=== PATIENT | male | born 1980 | race Caucasian/White ===

== ENCOUNTER 2017-08-20 08:30 | Observation (INO) | payer OTHER ==
[2017-08-20] MEDS ORDERED: ASPIRIN 81 MG CHEWABLE TABLET ONE (09:16)
[2017-08-20] MEDS ORDERED: FAMOTIDINE 20 MG/2 ML VIAL IV ONE (09:16)
--- NOTE | 2017-08-20 09:23 | RAD REPORT ---
EXAM DESCRIPTION: RAD - Chest Single View - 08/20/2017 9:16 am CLINICAL HISTORY: Left-sided chest pain COMPARISON: None. TECHNIQUE: AP portable chest image was obtained 0915 hours . FINDINGS: No peripheral mass or consolidation. Lung markings are not outside of normal range. Slight fullness of the left hilum is probably summation of normal structures. Mass or pathologic adenopathy is unlikely. Trachea is midline. Heart and vasculature are normal. No measurable pleural effusion an d no pneumothorax. No gross bony abnormality seen. No acute aortic findings suspected. IMPRESSION: No acute cardiopulmonary process. Fullness of the left hilum is likely summation of normal lung and vascular structures. Left hilum mas s or pathologic lymphadenopathy unlikely.
--- NOTE | 2017-08-20 09:48 | EKG ---
Test Date: 2017-08-20 Test Time: 08:46:26 Marketing Development Manager: HILARY MEASUREMENT RESULTS: Intervals: Rate: 82 DC: 160 QRSD: 88 QT: 404 QTc: 472 [place]: P: 39 DC: 160 QRS: -3 T: 31 INTERPRETIVE STATEMENTS: Normal sinus rhythm Normal ECG No previous ECG available for comparison Electronically Signed On 08-20-17 09:47:25 CDT by Sharath Rosario
[2017-08-20 09:53] LABS: Absolute Lymphocytes (CBC) 2.5 K/uL (0.7-4.9); Absolute Monocytes 0.4 K/uL (0.1-1.3); Absolute Neutrophil 2.6 K/uL (1.8-8.0); Basophils % 0.6 % (0-1.3); Hematocrit 38.5 % (39.6-49.0); Lymphocytes % 44.4 % (15.3-44.8); MCH 29.7 pg (27.0-35.0); MCV 89.5 fL (80-100); MPV 9.6 fL (7.6-11.3); Monocytes % 7.2 % (3.3-12.3)
[2017-08-20 09:57] LABS: Protime INR 0.9
--- NOTE | 2017-08-20 10:02 | EDPHYS ---
Physician Documentation [facility] Name: Milan Gonzales Age: 36 yrs Sex: Male : 1980 Arrival Date: 08/20/2017 Time: 08:33 Bed 5 Private MD: Alexi Melendez S ED Physician Brendon Morales HPI: 08/20 09:04 This 36 yrs old Male presents to ER via Ambulatory with complaints of Chest ryan Pain. 09:04 This 36 yrs old Male presents to ER via Ambulatory with complaints of Chest ryan Pain. 09:04 The patient or guardian reports chest pain that is located primarily in the substernal ryan area. The pain radiates to Associated signs and symptoms: The patient has no apparent associated signs or symptoms. The chest pain is described as a pressure, sharp. Duration: The patient or guardian reports multiple episodes, with no pattern. Modifying factors: The symptoms are alleviated by remaining still, the symptoms are aggravated by deep breath, exertion. Severity of pain: At its worst the pain was moderate in the emergency department the pain has improved moderately. Historical: - Allergies: 08:46 No Known Allergies; ph - Home Meds: 08:46 Lisinopril Oral [Active]; ph - PMHx: 08:46 Hypertension; ph - PSHx: 08:46 Appendectomy; R hand; ph - Immunization history:: Adult Immunizations unknown. - Social history:: Smoking status: Patient uses tobacco products, smokes one-half pack cigarettes per day. - Ebola Screening: : No symptoms or risks identified at this time. - Family history:: not pertinent. ROS: 09:04 Constitutional: Negative for fever, chills, and weight loss, Eyes: Negative for injury, ryan pain, redness, and discharge, ENT: Negative for injury, pain, and discharge, Neck: Negative for injury, pain, and swelling, Abdomen/GI: Negative for abdominal pain, nausea, vomiting, diarrhea, and constipation, Back: Negative for injury and pain, : Negative for injury, bleeding, discharge, and swelling, MS/Extremity: Negative for injury and deformity, Skin: Negative for injury, rash, and discoloration, Neuro: Negative for headache, weakness, numbness, tingling, and seizure, Psych: Negative for depression, anxiety, suicide ideation, homicidal ideation, and hallucinations, Allergy/Immunology: Negative for hives, rash, and allergies, Endocrine: Negative for neck swelling, polydipsia, polyuria, polyphagia, and marked weight changes, Hematologic/Lymphatic: Negative for swollen nodes, abnormal bleeding, and unusual bruising. 09:04 Cardiovascular: Positive for chest pain. 09:04 Respiratory: Positive for shortness of breath. Exam: 09:04 Constitutional: This is a well developed, well nourished patient who is awake, alert, ryan and in no acute distress. Head/Face: Normocephalic, atraumatic. Eyes: Pupils equal round and reactive to light, extra-ocular motions intact. Lids and lashes normal. Conjunctiva and sclera are non-icteric and not injected. Cornea within normal limits. Periorbital areas with no swelling, redness, or edema. ENT: Nares patent. No nasal discharge, no septal abnormalities noted. Tympanic membranes are normal and external auditory canals are clear. Oropharynx with no redness, swelling, or masses, exudates, or evidence of obstruction, uvula midline. Mucous membranes moist. Neck: Trachea midline, no thyromegaly or masses palpated, and no cervical lymphadenopathy. Supple, full range of motion without nuchal rigidity, or vertebral point tenderness. No Meningismus. Chest/axilla: Normal chest wall appearance and motion. Nontender with no deformity. No lesions are appreciated. Cardiovascular: Regular rate and rhythm with a normal S1 and S2. No gallops, murmurs, or rubs. Normal PMI, no JVD. No pulse deficits. Respiratory: Lungs have equal breath sounds bilaterally, clear to auscultation and percussion. No rales, rhonchi or wheezes noted. No increased work of breathing, no retractions or nasal flaring. Abdomen/GI: Soft, non-tender, with normal bowel sounds. No distension or tympany. No guarding or rebound. No evidence of tenderness throughout. Back: No spinal tenderness. No costovertebral tenderness. Full range of motion. Male : Normal genitalia with no discharge or lesions. Skin: Warm, dry with normal turgor. Normal color with no rashes, no lesions, and no evidence of cellulitis. MS/ Extremity: Pulses equal, no cyanosis. Neurovascular intact. Full, normal range of motion. Neuro: Awake and alert, GCS 15, oriented to person, place, time, and situation. Cranial nerves II-XII grossly intact. Motor strength 5/5 in all extremities. Sensory grossly intact. Cerebellar exam normal. Normal gait. Psych: Awake, alert, with orientation to person, place and time. Behavior, mood, and affect are within normal limits. 09:04 Musculoskeletal/extremity: DVT Exam: No signs of deep vein thrombosis. no pain, no swelling, no tenderness, negative Homans' sign noted on exam, no appreciated bluish discoloration, no erythema, no increased warmth. Vital Signs: 08:45 BP 120 / 82; Pulse 89; Resp 14; Temp 97.9(TE); Pulse Ox 100% on R/A; Weight 92.99 kg; ph Height 5 ft. 8 in. (172.72 cm); Pain 4/10; 09:32 BP 110 / 72 LA Sitting; Pulse 66; ph 09:32 BP 104 / 65 RA Sitting; Pulse 65; ph 09:32 Resp 16; Temp 98.2; Pulse Ox 99% on R/A; ph 09:46 BP 105 / 67; Pulse 54; Resp 16; Pulse Ox 97% on R/A; jb1 11:44 BP 115 / 71; Pulse 54; Resp 18; Temp 97.8; Pulse Ox 98% on R/A; ph 08:45 Body Mass Index 31.17 (92.99 kg, 172.72 cm) ph MDM: 08:40 Patient medically screened. [facility] 09:09 Data reviewed: vital signs, nurses notes, lab test result(s), EKG, radiologic studies, [facility] CT scan, plain films. 08/20 09:03 Order name: Basic Metabolic Panel [facility] 08/20 09:03 Order name: BNP; Complete Time: 10:01 [facility] 08/20 09:03 Order name: CBC with Diff; Complete Time: 09:58 [facility] 08/20 09:03 Order name: Ckmb [facility] 08/20 09:03 Order name: CPK [facility] 08/20 09:03 Order name: LFT's [facility] 08/20 09:03 Order name: Magnesium [facility] 08/20 09:03 Order name: PT-INR; Complete Time: 09:58 [facility] 08/20 09:03 Order name: Ptt, Activated; Complete Time: 09:58 [facility] 08/20 09:03 Order name: Troponin (emerg Dept Use Only); Complete Time: 09:58 [facility] 08/20 09:03 Order name: XRAY Chest (1 view); Complete Time: 09:58 08/20 09:03 Order name: Lipase 08/20 09:03 Order name: UDS 08/20 09:03 Order name: TSH 08/20 09:03 Order name: EKG; Complete Time: 09:04 [facility] 08/20 09:03 Order name: Cardiac monitoring; Complete Time: 09:06 [facility] 08/20 09:03 Order name: EKG - Nurse/Tech; Complete Time: 09:32 [facility] 08/20 09:03 Order name: IV Saline Lock; Complete Time: 09:07 [facility] 08/20 09:03 Order name: Labs collected and sent; Complete Time: 09:07 [facility] 08/20 09:03 Order name: O2 Per Protocol; Complete Time: 09:12 [facility] 08/20 09:03 Order name: O2 Sat Monitoring; Complete Time: 09:12 [facility] 08/20 09:03 Order name: CT Aorta for Dissection [facility] 08/20 09:03 Order name: Bilateral blood pressure; Complete Time: 09:31 [facility] 08/20 10:07 Order name: CONS Physician Consult EDMS 08/20 10:09 Order name: Echo with Doppler EDMS 08/20 11:57 Order name: CT EDMS Administered Medications: 09:31 Drug: Aspirin Chewable Tablet 324 mg Route: PO; ph 10:00 Follow up: Response: No adverse reaction ph 09:31 Drug: Pepcid 20 mg Route: IVP; Site: right antecubital; ph 10:00 Follow up: Response: No adverse reaction ph 10:20 Drug: Lovenox 1 mg/kg Route: Sub-Q; Site: abdomen; hb 11:11 Follow up: Response: No adverse reaction ph Disposition: 08/20/17 10:01 Hospitalization ordered by Kumar Carmen for Observation. Preliminary diagnosis are Chest pain, unspecified, Dyspnea, Nausea. - Bed requested for Telemetry/MedSurg (observation). - Status is Observation. ph - Condition is Fair. - Problem is new. - Symptoms have improved. UTI on Admission? No Signatures: Dispatcher [employer] EDMS Carline Perez Corey, MD MD cha Hall, Patricia, RN RN Sarah Buenrostro RN RN hb Corrections: (The following items were deleted from the chart) 11:41 10:01 Hospitalization Ordered by Kumar Carmen DO for Observation. Preliminary bd diagnosis is Chest pain, unspecified; Dyspnea; Nausea. Bed requested for Telemetry/MedSurg (observation). Status is Observation. Condition is Fair. Problem is new. Symptoms have improved. UTI on Admission? No. ryan 13:52 11:41 08/20/2017 10:01 Hospitalization Ordered by Kumar Carmen DO for Observation. ph Preliminary diagnosis is Chest pain, unspecified; Dyspnea; Nausea. Bed requested for Telemetry/MedSurg (observation). Status is Observation. Condition is Fair. Problem is new. Symptoms have improved. UTI on Admission? No. bd
--- NOTE | 2017-08-20 10:02 | ER ---
Nurse's Notes [facility] Name: Milan Gonzales Age: 36 yrs Sex: Male : 1980 Arrival Date: 08/20/2017 Time: 08:33 Bed 5 Private MD: Alexi Melendez S Diagnosis: Chest pain, unspecified;Dyspnea;Nausea Presentation: 08/20 08:43 Presenting complaint: Patient states: " I've been having chest pain off and on since and it seems worse when get hot or sweaty." Reports L sided chest pain and SOB. Transition of care: patient was not received from another setting of care. Onset of symptoms was August 20, 2017. Risk Assessment: Do you want to hurt yourself or someone else? Patient reports no desire to harm self or others. Initial Sepsis Screen: Does the patient meet any 2 criteria? No. Patient's initial sepsis screen is negative. Does the patient have a suspected source of infection? No. Patient's initial sepsis screen is negative. Care prior to arrival: None. 08:43 Method Of Arrival: Ambulatory 08:43 Acuity: LIOR 3 ph Historical: - Allergies: 08:46 No Known Allergies; ph - Home Meds: 08:46 Lisinopril Oral [Active]; ph - PMHx: 08:46 Hypertension; ph - PSHx: 08:46 Appendectomy; R hand; ph - Immunization history:: Adult Immunizations unknown. - Social history:: Smoking status: Patient uses tobacco products, smokes one-half pack cigarettes per day. - Ebola Screening: : No symptoms or risks identified at this time. - Family history:: not pertinent. Screenin:47 Abuse screen: Denies threats or abuse. Denies injuries from another. Nutritional ph screening: No deficits noted. Tuberculosis screening: No symptoms or risk factors identified. Fall Risk None identified. Assessment: 09:00 General: Appears in no apparent distress. comfortable, well groomed, Behavior is calm, ph cooperative, appropriate for age, Reports fatigue for 2-3 days, Denies fever, feeling ill. Pain: Complains of pain in anterior aspect of left upper chest and left breast Pain radiates to back and left arm Pain currently is 5 out of 10 on a pain scale. at worst was 8 out of 10 on a pain scale. Quality of pain is described as pressure, sharp, Pain began 2-3 days ago. Neuro: Level of Consciousness is awake, alert, obeys commands, Oriented to person, place, time, situation. Cardiovascular: Reports chest pain, diaphoresis, fatigue, nausea, shortness of breath, Capillary refill < 3 seconds in bilateral fingers Patient's skin is warm and dry. Rhythm is sinus rhythm Chest pain quality is heaviness, sharp, is located in left anterior chest wall radiates to left arm(s) back began . Respiratory: Airway is patent Respiratory effort is even, unlabored. Respiratory: Denies cough. GI: Reports nausea. Derm: Skin is intact, is healthy with good turgor, Skin is pink, warm \\T\\ dry. Musculoskeletal: Circulation, motion, and sensation intact. Range of motion: intact in all extremities. 10:00 Reassessment: Patient appears in no apparent distress at this time. Patient and/or ph family updated on plan of care and expected duration. Pain level reassessed. Patient is alert, oriented x 3, equal unlabored respirations, skin warm/dry/pink. Pt resting quietly, awaiting lab results and CT scan. 11:30 Reassessment: Patient appears in no apparent distress at this time. Patient and/or ph family updated on plan of care and expected duration. Pain level reassessed. Patient is alert, oriented x 3, equal unlabored respirations, skin warm/dry/pink. Pt resting quietly, VSS. 12:51 Reassessment: Patient appears in no apparent distress at this time. Patient and/or ph family updated on plan of care and expected duration. Pain level reassessed. Patient is alert, oriented x 3, equal unlabored respirations, skin warm/dry/pink. Attempted to call report to 2nd floor, receiving nurse unavailable, was told that she had just gotten a direct admit and asked to call back in 30 min. 13:20 Reassessment: Attempted to call report, place on hold x 6min, will attempt again. ph Vital Signs: 08:45 BP 120 / 82; Pulse 89; Resp 14; Temp 97.9(TE); Pulse Ox 100% on R/A; Weight 92.99 kg; ph Height 5 ft. 8 in. (172.72 cm); Pain 4/10; 09:32 BP 110 / 72 LA Sitting; Pulse 66; ph 09:32 BP 104 / 65 RA Sitting; Pulse 65; ph 09:32 Resp 16; Temp 98.2; Pulse Ox 99% on R/A; ph 09:46 BP 105 / 67; Pulse 54; Resp 16; Pulse Ox 97% on R/A; jb1 11:44 BP 115 / 71; Pulse 54; Resp 18; Temp 97.8; Pulse Ox 98% on R/A; ph 08:45 Body Mass Index 31.17 (92.99 kg, 172.72 cm) ph ED Course: 08:33 Patient arrived in ED. mr 08:34 Alexi Melendez MD is Private Physician. mr 08:40 Brendon Morales MD is Attending Physician. ryan 08:43 Lyudmila Sandoval, YADIEL is Primary Nurse. ph 08:45 Triage completed. ph 08:47 Arm band placed on. ph 08:47 Patient has correct armband on for positive identification. Placed in gown. Bed in low ph position. Call light in reach. Side rails up X 1. threat monitoring analyst on. Pulse ox on. NIBP on. 08:49 EKG done, by communications technologist. reviewed by Brendon Morales MD. at1 09:15 X-ray completed. Portable x-ray completed in exam room. Patient tolerated procedure kp1 well. 09:16 XRAY Chest (1 view) In Process Unspecified. EDMS 09:25 Inserted saline lock: 20 gauge in right antecubital area, using aseptic technique. ph Blood collected. 10:00 Kumar Carmen DO is Hospitalizing Provider. ryan 10:00 Patient maintains SpO2 saturation greater than 95% on room air. ph 10:11 Radiology exam delayed due to lab results not completed at this time. (BUN/Creatinine). cw1 10:42 Radiology exam delayed due to lab results not completed at this time. (BUN/Creatinine). cw1 11:13 Echocardiogram with Doppler done by cardiac cath lab technologist. tc 11:15 Radiology exam delayed due to lab results not completed at this time. (BUN/Creatinine). cw1 11:37 X-ray completed. Portable x-ray completed in exam room. Patient tolerated procedure sw well. 11:40 CT completed. Patient tolerated procedure well. Patient moved to CT via wheelchair. mw3 Patient moved back from CT. 12:52 No provider procedures requiring assistance completed. Patient admitted, IV remains in ph place. Administered Medications: : Drug: Aspirin Chewable Tablet 324 mg Route: PO; ph 10:00 Follow up: Response: No adverse reaction ph 09:31 Drug: Pepcid 20 mg Route: IVP; Site: right antecubital; ph 10:00 Follow up: Response: No adverse reaction ph 10:20 Drug: Lovenox 1 mg/kg Route: Sub-Q; Site: abdomen; hb 11:11 Follow up: Response: No adverse reaction ph Outcome: 10:01 Decision to Hospitalize by Provider. [facility] 13:52 Patient left the ED. 13:52 Admitted to Tele accompanied by tech, family with patient, via wheelchair, with chart. 13:52 Condition: stable 13:52 Instructed on the need for admit. Signatures: Dispatcher [employer] EDNabeel Gonzales jb1 Brendon Morales MD MD cha Rivera, Maria mr Buchanan, Crystal cw1 Lupe reed, junior bookkeeper EKG Tat1 Nelly Simmons, junior bookkeeper EKG Ttc Lyudmila Sandoval, YADIEL RN Delicia Unger Heather, YADIEL RN Sussy Ureña kp1 Tammy Thibodeaux mw3
[2017-08-20] MEDS ORDERED: ENOXAPARIN 100 MG/ML SYR SQ ONE (10:16)
[2017-08-20] MEDS ORDERED: PANTOPRAZOLE 40MG TABLET PO ONE (10:33)
[2017-08-20] MEDS ORDERED: ACETAMINOPHEN 500 MG TAB PO PRN (10:33)
[2017-08-20] MEDS ORDERED: ONDANSETRON 4 MG/2 ML VIAL IV PRN (10:33)
[2017-08-20] MEDS ORDERED: NITROGLYCERIN 0.4 MG/TAB SL PRN (10:33)
--- NOTE | 2017-08-20 10:43 | P.HP ---
Certification for Inpatient Patient admitted to: Observation With expected LOS: <2 Midnights Patient will require the following post-hospital care: None Practitioner: I am a practitioner with admitting privileges, knowledge of patient current condition, hospital course, and medical plan of care. Services: Services provided to patient in accordance with Admission requirements found in Title 42 Section 412.3 of the Code of Federal Regulations Patient History Date of Service: 08/20/17 Primary Care Provider: Dr. Melendez Reason for admission: Chest pain History of Present Illness: 36-year-old male presented emergency room with chest pain. Patient reports chest pain over the past several weeks. The pain comes and goes. Chest pain is mainly to the substernal region. He rates the pain about a 3/10. Pain would radiate to the left arm causing some achiness. The pain is sharp at times. It is associated with some shortness of breath, nausea and dizziness. Today pain was severe. He came to the ER for further evaluation. In the ER patient was evaluated. Blood pressure stable. Initial cardiac enzymes unremarkable with a troponin of less than 0.03. BNP 36. CBC unremarkable. Chest x-ray showed no acute changes. Some fullness to the left hilum noted. EKG showed normal sinus rhythm. Due to his medical history and presentation the patient was admitted for observation. When I saw the patient the ER, he is without any significant chest pain. Patient with history of hypertension, GERD, and tobacco abuse. Allergies No Known Allergies Allergy (Unverified 05/25/15 11:50) Home medications list reviewed: Yes Home Medications: Buprenorphine HCl/Naloxone HCl [Suboxone 8 mg-2 mg Tablet] 1 tab PO BID Ibuprofen 1 tab PO TID 05/25/15 Lisinopril 1 tab PO DAILY 05/25/15 Hydrocodone Bit/Acetaminophen [Lapel 7.5-325 Tablet] 1 each PO Q4HP PRN #20 tablet 05/26/15 - Past Medical/Surgical History Diabetic: No -: Hypertension -: Chronic shoulder pain -: GERD -: Spondylosis -: Tobacco abuse -: Hand surgery status post rattlesnake bite -: Appendectomy -: Right wrist cyst removed Psychosocial/ Personal History: Patient is . He has 1 child. He is a broadcast technician - Family History Father -: Heart disease, Diabetes, Cancer (Liver cancer) Notes: liver cancer Mother -: Heart disease Notes: chronic fatigue symdrome, arthritis - Social History Smoking Status: Heavy Tobacco smoker (>10 cigarettes/day) Counseled patient to stop smoking for: less than 10 minutes Smoking therapy provided: Yes Patient receptive to therapy: Yes Alcohol use: No CD- Drugs: No Caffeine use: Yes Place of Residence: Home Review of Systems General: Weakness, Malaise, As per HPI Eyes: Unremarkable ENT: Unremarkable Respiratory: Shortness of Breath, As per HPI Cardiovascular: Chest Pain, Light Headedness, As per HPI Gastrointestinal: Nausea, As per HPI Genitourinary: Unremarkable Musculoskeletal: Back Pain, As per HPI Integumentary: Unremarkable Neurological: Weakness, As per HPI Lymphatics: Unremarkable Physical Examination - Physical Exam General: Alert, In no apparent distress, Oriented x3, Cooperative HEENT: Atraumatic, Normocephalic, PERRLA, Mucous membr. moist/pink Neck: Supple, No Thyromegaly Respiratory: Clear to auscultation bilaterally, Normal air movement Cardiovascular: Normal pulses, Regular rate/rhythm Gastrointestinal: Normal bowel sounds, Soft and benign, Non-distended, No ascites, No tenderness, No masses, No rebound, No guarding Musculoskeletal: No contractures, No erythema, No tenderness, No warmth Integumentary: No tenderness/swelling, No erythema, No warmth, No cyanosis Neurological: Normal speech, Normal strength at 5/5 x4 extr, Normal tone, Normal affect Lymphatics: No axilla or inguinal lymphadenopathy - Studies Laboratory Data (last 24 hrs) 08/20/17 09:25: PT 10.6, INR 0.90, APTT 27.4 08/20/17 09:25: WBC 5.6, Hgb 12.8 L, Hct 38.5 L, Plt Count 196 08/20/17 09:25: B-Natriuretic Peptide 36 Assessment and Plan - Problems (Diagnosis) (1) Chest pain Current Visit: Yes Status: Acute Plan: Patient will be admitted for cardiac evaluation. Will monitor cardiac enzymes, check echocardiogram. Cardiology consulted. Await further recommendations. Will continue with his blood pressure medication. Qualifiers: Chest pain type: unspecified Qualified Code(s): R07.9 - Chest pain, unspecified (2) Dyspnea Current Visit: Yes Status: Acute Plan: Will check echocardiogram. Repeat chest x-ray. Continue as above. Qualifiers: Dyspnea type: shortness of breath Qualified Code(s): R06.02 - Shortness of breath; R06.00 - Dyspnea, unspecified; R06.01 - Orthopnea (3) Hypertension Current Visit: Yes Status: Chronic Plan: Will continue with his medication. Will monitor and adjust appropriately. Qualifiers: Hypertension type: essential hypertension Qualified Code(s): I10 - Essential (primary) hypertension (4) GERD (gastroesophageal reflux disease) Current Visit: Yes Status: Chronic Plan: Continue with PPI. Qualifiers: Esophagitis presence: esophagitis presence not specified Qualified Code(s) : K21.9 - Gastro-esophageal reflux disease without esophagitis (5) Tobacco abuse Current Visit: Yes Status: Chronic Plan: Tobacco cessation education will be provided. Will provide nicotine patch as needed. Discharge Plan: Home Plan to discharge in: 24 Hours - Advance Directives Does patient have a Living Will: No Does patient have a Durable POA for Healthcare: No - Code Status/Comfort Care Code Status Assessed: Yes Time Spent Managing Pts Care (In Minutes): 55
[2017-08-20 11:21] LABS: Bicarbonate 25 mEq/L (21-31); CKMB Creatine Kinase MB 2.9 ng/ml (0.3-4.0); Glucose Level 105 mg/dL (65-120); Lipase 28 U/L (22-51); Sodium Level 138 mEq/L (135-145); Thyroid Stimulating Hormone 1.08 uIU/mL (0.34-5.60)
[2017-08-20 11:27] LABS: ALT/SGPT 24 IU/L (10-60); AST/SGOT 23 IU/L (10-42); Albumin 4.1 g/dL (3.2-5.5); Alkaline Phosphatase 49 IU/L (42-121); BUN Blood Urea Nitrogen 21 mg/dL (6-20); Bilirubin Direct 0.1 mg/dL (0-0.2); Bilirubin Total 0.4 mg/dL (0.3-1.2); Creatine Phosphokinase 120 IU/L (22-269); Magnesium 1.9 mg/dL (1.8-2.5); Protein, Total 6.4 g/dL (6.0-8.3)
--- NOTE | 2017-08-20 11:57 | RAD REPORT ---
EXAM DESCRIPTION: CT - Angio Aorta For Dissection - 08/20/2017 11:39 am CLINICAL HISTORY: Chest pain it radiates to the left, diaphoresis COMPARISON: None. TECHNIQUE: Dynamically enhanced 3 mm thick images of the chest, abdomen, and upper pelvis were obtai darrell during administration of approximately 150mL Isovue 370 IV contrast. Sagittal and coronal reconst ruction images were generated and reviewed. Exam utilizes a protocol to evaluate entire course of the aorta. All CT scans are performed using dose optimization technique as appropriate and may include automated exposure control or mA/KV adjustment according to patient size. FINDINGS: Aorta is normal in diameter with no dissection or other acute aortic findings. Reconstruct ion images show no significant findings. Pulmonary arteries are normal as well. No cardiomegaly, pericardial thickening or pericardial effusio n. No mass or infiltrate in the lung parenchyma. No pleural thickening, pleural effusion or pneumothorax . No abnormal mediastinal or hilar mass or lymphadenopathy seen. No chest wall mass or abnormal axillar y lymphadenopathy. Celiac, SMA and renal arteries show no suspicious findings. Solid abdominal viscera and bowel show no suspicious findings. Liver is probably fatty infiltrated. No mass or abnormal lymphadenopathy. No f ree air, free fluid or inflammatory stranding. No urinary bladder abnormality. No acute bone finding. 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 No pathologic bone process. IMPRESSION: Negative CT scan of the aorta. No acute findings on chest, abdomen and upper pelvis examination.
--- NOTE | 2017-08-20 12:46 | ECHO ---
HEIGHT: 5 ft 8 in WEIGHT: 205 lb oz DATE OF STUDY: 08/20/[address]: Brendon Morales MD 2-DIMENSIONAL: YES M.MODE: YES DOPPLER: YES COLOR FLOW: YES TDS: NO PORTABLE: NO DEFINITY: NO BUBBLE STUDY: NO DIAGNOSIS: CHEST PAIN CARDIAC HISTORY: CATHERIZATION: NO SURGERY: NO PROSTHETIC VALVE: NO PACEMAKER: NO MEASUREMENTS (cm) DIASTOLIC (NORMALS) SYSTOLIC (NORMALS) IVSd 0.8 (0.6-1.2) LA Diam 3.8 (1.9-4.0) LVEF 63% LVIDd 4.7 (3.5-5.7) LVIDs 3.1 (2.0-3.5) %FS 34% LVPWd 0.9 (0.6-1.2) Ao Diam 3.2 (2.0-3.7) 2 DIMENSIONAL ASSESSMENT: RIGHT ATRIUM: NORMAL LEFT ATRIUM: NORMAL RIGHT VENTRICLE: NORMAL LEFT VENTRICLE: NORMAL TRICUSPID VALVE: NORMAL MITRAL VALVE: NORMAL PULMONIC VALVE: NORMAL AORTIC VALVE: NORMAL PERICARDIAL EFFUSION: NONE AORTIC ROOT: NORMAL LEFT VENTRICULAR WALL MOTION: NORMAL DOPPLER/COLOR FLOW: NORMAL COMMENTS: NORMAL 2D ECHOCARDIOGRAM WITH DOPPLER. TECHNOLOGIST: Joan REESE
--- NOTE | 2017-08-20 14:06 | CON ---
History Of Present Illness: Mr. Gonzales came to the hospital with chest pain. He has actually been h aving chest pain off and on for almost a week. It is between his shoulder blades and back and in the front all over. He does not have a true exertional component, but when he is outdoors, it gets bett er when he comes inside. He notes that he is always very hot when he has the pain. It does not seem to be related to meals. He has never had myocardial infarction or stroke. He has hypertension, elaine vated cholesterol. He takes blood pressure medicines and has so far not taken lipid medicines. He r eports no allergies. He is a regular tobacco user. Denies any history of diabetes. Physical Examination: General: He is alert, oriented, pleasant, 93 kg, 5 feet 8 inches. Body mass index above 30. HEENT: Unremarkable. Lungs: Clear. Neck: Carotids, no bruit. Heart: Normal. Abdomen: Soft. No mass. Extremities: Normal. Impression: The patient seems to be having chest pain with typical and atypical features. We will d o a stress test after myocardial infarction is ruled out overnight, echo, and proceed from there. He needs to quit using tobacco completely. PIETRO/NAE Voice ID: [id number] Report ID: [id number]
[2017-08-20] MEDS: NA CHLORIDE 0.9% 1,000 ML IV SCH (14:34)
[2017-08-20 14:44] LABS: Urine Appearance CLEAR; Urine Bilirubin NEGATIVE (NEG); Urine Blood NEGATIVE (NEG); Urine Color YELLOW; Urine Glucose NEGATIVE (NEG); Urine Protein NEGATIVE (NEG); Urine Specific Gravity >=1.030 (1.005-1.030); Urine Urobilinogen 0.2 mg/dL (0.2-1.0); Urine pH 6.5 (5.0-7.0)
[2017-08-20 14:49] LABS: Urine Microscopic Reflex NO UMIC
[2017-08-20 16:57] LABS: Barbiturates NEGATIVE; Benzodiazepines NEGATIVE; Cocaine NEGATIVE; METHAMPHETAM NEGATIVE (NEGATIVE); Opiates NEGATIVE; Phencyclidine NEGATIVE; THC Cannibis NEGATIVE
[2017-08-20 18:54] LABS: CKMB Creatine Kinase MB 2.7 ng/ml (0.3-4.0)
[2017-08-21] MEDS: NA CHLORIDE 0.9% 1,000 ML IV SCH (00:24)
[2017-08-21 02:32] LABS: CKMB Creatine Kinase MB 2.3 ng/ml (0.3-4.0)
[2017-08-21 05:11] LABS: Absolute Lymphocytes (CBC) 3.5 K/uL (0.7-4.9); Absolute Monocytes 0.4 K/uL (0.1-1.3); Absolute Neutrophil 2.1 K/uL (1.8-8.0); Basophils % 0.5 % (0-1.3); Eosinophils % 1.6 % (0-4.4); Hematocrit 37.9 % (39.6-49.0); Lymphocytes % 57.2 % (15.3-44.8); MCH 30.2 pg (27.0-35.0); MCV 90.7 fL (80-100); MPV 9.9 fL (7.6-11.3); Monocytes % 7.2 % (3.3-12.3); RBC Red Blood Cell Count 4.18 M/uL (4.33-5.43)
[2017-08-21 05:48] LABS: BUN Blood Urea Nitrogen 18 mg/dL (6-20); Bicarbonate 26 mEq/L (21-31); Glucose Level 116 mg/dL (65-120); HDL Cholesterol 28 mg/dL (27-67); LDL Cholesterol, Calculated 67 (<130); Potassium 4.4 mEq/L (3.6-5.0); Sodium Level 140 mEq/L (135-145)
[2017-08-21] MEDS ORDERED: LISINOPRIL 10 MG TAB PO SCH (09:00)
[2017-08-21] MEDS ORDERED: ASPIRIN EC 81 MG TAB PO SCH (09:00)
[2017-08-21] MEDS ORDERED: ENOXAPARIN 40 MG/0.4 ML SQ SCH (09:00)
[2017-08-21] MEDS ORDERED: NA CHLORIDE 0.9% 500 ML IV ONE (11:05)
--- NOTE | 2017-08-21 11:11 | P.DS ---
Admission Date: 08/20/17 Discharge Date: 08/21/17 Primary Care Provider: Dr. Melendez Disposition: ROUTINE DISCHARGE Discharge Condition: GOOD Reason for Admission: Chest pain Consultations: Cardiology-Dr. Rosario Procedures: Echocardiogram: Ejection fraction 63%. CT dissection: Unremarkable for any acute changes. Possible fatty liver noted. Cardiac stress test: No stress induced ischemia. - Problems (1) Chest pain Onset Date: 08/21/17 Current Visit: Yes Status: Acute Qualifiers: Chest pain type: unspecified Qualified Code(s): R07.9 - Chest pain, unspecified (2) Dyspnea Onset Date: 08/21/17 Current Visit: Yes Status: Acute Qualifiers: Dyspnea type: shortness of breath Qualified Code(s): R06.02 - Shortness of breath; R06.00 - Dyspnea, unspecified; R06.01 - Orthopnea (3) Hypertension Onset Date: 08/21/17 Current Visit: Yes Status: Chronic Qualifiers: Hypertension type: essential hypertension Qualified Code(s): I10 - Essential (primary) hypertension (4) GERD (gastroesophageal reflux disease) Onset Date: 08/21/17 Current Visit: Yes Status: Chronic Qualifiers: Esophagitis presence: esophagitis presence not specified Qualified Code(s) : K21.9 - Gastro-esophageal reflux disease without esophagitis (5) Tobacco abuse Onset Date: 08/21/17 Current Visit: Yes Status: Chronic (6) Hyperlipidemia Current Visit: Yes Status: Chronic Qualifiers: Hyperlipidemia type: pure hyperglyceridemia Qualified Code(s): E78.1 - Pure hyperglyceridemia (7) Fatty liver Current Visit: Yes Status: Chronic Brief History of Present Illness: 36-year-old male presented emergency room with chest pain. Patient reports chest pain over the past several weeks. The pain comes and goes. Chest pain is mainly to the substernal region. He rates the pain about a 3/10. Pain would radiate to the left arm causing some achiness. The pain is sharp at times. It is associated with some shortness of breath, nausea and dizziness. Today pain was severe. He came to the ER for further evaluation. In the ER patient was evaluated. Blood pressure stable. Initial cardiac enzymes unremarkable with a troponin of less than 0.03. BNP 36. CBC unremarkable. Chest x-ray showed no acute changes. Some fullness to the left hilum noted. EKG showed normal sinus rhythm. Due to his medical history and presentation the patient was admitted for observation. When I saw the patient the ER, he is without any significant chest pain. Patient with history of hypertension, GERD, and tobacco abuse. Hospital Course: During the course of his stay chest pain resolved. Echocardiogram unremarkable with ejection fraction of 63%. CT dissection also unremarkable except for possible fatty liver. Patient was evaluated by cardiology. Cardiac stress test performed. No stress induced ischemia noted. At discharge patient will continue with aspirin 81 mg daily. Patient may follow up with cardiology in 2- 4 weeks to monitor his progress. Patient has a history of hypertension. He has been taking lisinopril 20 mg daily. Blood pressures have remained low normal off medication. Chest pain likely related to low blood pressure. Will discontinue lisinopril at this time. Recommendation is to monitor his blood pressure daily. If his blood pressure elevates patient may require medication but at a reduced dose. This can be further monitored evaluated by his PCP. No need for medication at this time. Patient may have underlying GERD. At discharge patient will continue with Protonix 40 mg 1 pill once daily. Patient may benefit with GI evaluation as an outpatient. Recommendation to limit nonsteroidal anti-inflammatory use. Patient has hyperlipidemia. Triglycerides elevated at 312. Recommendation on lifestyle modification education. Recommendation is to recheck lipid panel in 1 month. If this persists the patient may require medication. This can be further monitored and addressed by his PCP. Patient has tobacco abuse. Tobacco cessation addressed in detail. Education will be provided. As mentioned above possible fatty liver noted on CT scan. This can be followed up by GI as an outpatient. Vital Signs/Physical Exam: Temp Pulse Resp BP Pulse Ox 97.3 F 55 17 95/55 L 98 08/21/17 08:00 08/21/17 08:00 08/21/17 08:00 08/21/17 08:00 08/21/17 08:00 General: Alert, In no apparent distress, Oriented x3, Cooperative HEENT: Atraumatic, Mucous membr. moist/pink Neck: Supple, No Thyromegaly Respiratory: Clear to auscultation bilaterally, Normal air movement Cardiovascular: Normal pulses, Regular rate/rhythm Gastrointestinal: Normal bowel sounds, Soft and benign, Non-distended, No tenderness, No masses, No rebound, No guarding Musculoskeletal: No erythema, No tenderness, No warmth Integumentary: No tenderness/swelling, No erythema, No warmth, No cyanosis Neurological: Normal speech, Normal strength at 5/5 x4 extr, Normal tone, Normal affect Laboratory Data at Discharge: WBC 6.2 K/uL (4.3-10.9) 08/21/17 04:25 Hgb 12.6 g/dL (13.6-17.9) L 08/21/17 04:25 Hct 37.9 % (39.6-49.0) L 08/21/17 04:25 Plt Count 184 K/uL (152-406) 08/21/17 04:25 PT 10.6 SECONDS (9.5-12.5) 08/20/17 09:25 INR 0.90 08/20/17 09:25 APTT 27.4 SECONDS (24.3-36.9) 08/20/17 09:25 Sodium 140 mEq/L (135-145) 08/21/17 04:25 Potassium 4.4 mEq/L (3.6-5.0) 08/21/17 04:25 BUN 18 mg/dL (6-20) 08/21/17 04:25 Creatinine 0.81 mg/dL (0.61-1.24) 08/21/17 04:25 Glucose 116 mg/dL (65-120) 08/21/17 04:25 Magnesium 2.0 mg/dL (1.8-2.5) 08/21/17 04:25 Total Bilirubin 0.4 mg/dL (0.3-1.2) 08/20/17 09:25 AST 23 IU/L (10-42) 08/20/17 09:25 ALT 24 IU/L (10-60) 08/20/17 09:25 Alkaline Phosphatase 49 IU/L (42-121) 08/20/17 09:25 Troponin I < 0.03 ng/mL (<0.03) 08/21/17 01:16 B-Natriuretic Peptide 36 pg/ml (<=100) 08/20/17 09:25 Triglycerides 312 mg/dL (35-160) H 08/21/17 04:25 Cholesterol 157 mg/dL (<200) 08/21/17 04:25 HDL Cholesterol 28 mg/dL (27-67) 06/05/18 04:25 Cholesterol/HDL Ratio 5.61 08/21/17 04:25 Lipase 28 U/L (22-51) 08/20/17 09:25 Home Medications: Buprenorphine HCl/Naloxone HCl [Suboxone 8 mg-2 mg Tablet] 1 tab PO BID Pantoprazole [Protonix Tab] 40 mg PO DAILY #30 tab 08/21/17 New Medications: Pantoprazole [Protonix Tab] 40 mg PO DAILY #30 tab Patient Discharge Instructions: 1. Patient will need a follow up with PCP in 1 week to follow up this hospitalization. 2. Patient presented with chest pain. This resolved. Echocardiogram unremarkable with ejection fraction of 63%. CT dissection also unremarkable except for possible fatty liver. Patient was evaluated by cardiology. Cardiac stress test performed. No stress induced ischemia noted. No further intervention required. At discharge patient will continue with aspirin 81 mg daily. Patient may follow up with cardiology in 2- 4 weeks to monitor his progress. 3. Patient has a history of hypertension. He has been taking lisinopril 20 mg daily. Blood pressures have remained low- normal off medication. Chest pain likely related to low blood pressure. Will discontinue lisinopril at this time. Recommendation is to monitor his blood pressure daily. If his blood pressure elevates above 140/90 consistently, patient may require medication but at a reduced dose. This can be further monitored evaluated by his PCP. No need for medication at this time. 4. Patient may have underlying GERD. At discharge patient will continue with Protonix 40 mg 1 pill once daily. Patient may benefit with GI evaluation as an outpatient. Recommendation to limit use of nonsteroidal anti-inflammatories. 5. Patient has hyperlipidemia. Triglycerides elevated at 312. Recommendation on lifestyle modification education. Recommendation is to recheck lipid panel in 1 month. If this persists the patient may require medication. This can be further monitored and addressed by his PCP. 6. Patient has tobacco abuse. Tobacco cessation addressed in detail. Education will be provided. 7. As mentioned above possible fatty liver noted on CT scan. This can be followed up by GI as an outpatient. Diet: AHA Activity: Ad etelvina Time spent managing pt's care (in minutes): 55
--- NOTE | 2017-08-21 14:48 | TREADMILL ---
70% H.R.: 128 85% H.R.: 156 90% H.R.: 165 100% H.R.: 183 DX: CHEST PAIN Date of Study: 08/21/2017 Ht: 5 8 Wt: 203 lb 0 oz Consulting Physician: LATISHA MEDICATIONS: TYLENOL, ASPIRIN, LOVENOX, NITROSTAT, ZOFRAN HISTORY: 36 YEAR OLD MALE HERE FOR CHEST PAIN. HISTORY OF HYPERTENSION. PHYSICIAL EXAMINATION: RESTING B.P.: 126/88 RESTING H.R.: 60 RESTING EKG: NORMAL PROTOCOL: LEXISCAN EXERCISE TIME: 11:29 MAXIMUM HEART RATE: 146 % OF PREDICTED B.P. AT PEAK STRESS: 144/84 H.R. AT 1 MINUTE POST EXERCISE: 127 IMPRESSION: ROUTINE STRESS TEST PERFORMED. STOPPED FOR FATIGUE, SHORTNESS OF BREATH AND CHEST PAIN SIX OUT OF TEN MID STERNAL THAT RADIATED TO THE LEFT ARM WHEN PATIENT STARTED HAVING PREMATURE VENTRICULAR COMPLEXES DURING PHASE FOUR IF STRESS TEST. PAIN RELIEVED DURING RECOVERY AND PREMATURE VENTRICULAR COMPLEXES GONE AT THAT TIME. SEE REPORT. NEGATIVE EXERCISE TOLERANCE TEST.
--- NOTE | 2017-08-21 23:13 | PN ---
Date of Progress Note: 08/21/2017 History: The patient is 36, came in with chest pain that is atypical, sharp, stabbing, lasting secon ds chest pain. He had a stress test ordered for today that showed no ischemia. He had so me PVCs during his stress test, but no EKG changes that are consistent with coronary artery disease. I suggest the patient can go home. His problem may be certainly PVCs and ectopy causing is chest pa in, and I would suggest a low-dose beta-donald and will be happy to see him as an outpatient if the symptoms persist. MEENA/NAE Voice ID: [id number] Report ID: [id number]
== END 2017-08-21 14:40 | disposition home or self-care (01) ==
LOC: ER 08:30 → ERHOLD 10:04 → 2ND 13:43
PROVIDERS: ADMIT Family Medicine; ATTEND Family Medicine
DX: R07.9 Chest pain, unspecified (principal); R06.00 Dyspnea, unspecified; I10 Essential (primary) hypertension; K21.9 Gastro-esophageal reflux disease without esophagitis; E78.5 Hyperlipidemia, unspecified; F17.210 Nicotine dependence, cigarettes, uncomplicated
CPT/HCPCS: 36415; 71045; 71046; 71275; 74175; 80048; 80061; 80076; 80307; 81003; 82550; 82553; 83690; 83735; 83880; 84443; 84484; 85025; 85610; 85730; 93005; 93017; 93306; 96372; 96374; 99285; G0378; J1650; J7030; Q9967

== ENCOUNTER → 2023-06-06 | Emergency (ER) | payer OTHER ==
[~2023-06-06] MED LIST: NA CHLORIDE 0.9% 1,000 ML ONE; ONDANSETRON 4 MG/2 ML VIAL ONE
--- OUTSIDE RECORDS SUMMARY | 2023-06-06 11:01 | XMS REPORT | Continuity of Care Document ---
Author Name Unknown Address [address] [place] [address] [facility] thconnect Address [address] [place] [address] Care Team Providers Care Head Custodian Name Role Phone Ana Diaz Attending Clinician [phone] Provider, [facility] Attending Clinician Un available ANA BAKER Attending Clinician Unavailable Payers Payer Name Policy Type Policy Number Effective Date Expirati on Date Source Problems Condition Name Condition Details Condition Category Status Onset Date Resolution Date Last Treatment Date Treating Clinician Comments Source No known active problems No known active problems Disease [facility] Allergies, Adverse Reactions, Alerts Allergy Name Allergy Type Status Severity Reaction(s) Onset Date Inactive Date Treating Clinician Comments Source NO KNOWN ALLERGIE S Drug Class Active [facility] Social History Social Habit Start Date Stop Date Quantity Comments Source Sex Assigned At [facility] Exposure to SARS-CoV-2 (event) [facility] of tobacco use Cigarette Smoker [facility] Cigarettes smoked current (pack per day) - Reported 2020-02-05 00:00:00 2020-02-05 00:00:00 [facility] Tobacco use and exposure 2020-02-05 00:00:00 2020-02-05 00:00:00 Never used [facility] Alcohol intake 2020-02-05 00:00:00 2020-02-05 00:00:00 Lifetime non-drinker (finding) [facility] History SDOH Alcohol Frequency 2020-02-05 00:00:00 2020-02-05 00:00:00 1 [facility] History SDOH Alcohol Std Drinks 2020-02-05 00:00:00 2020-02-05 00:00:00 99 [facility] History SDOH Alcohol Binge 2020-02-05 00:00:00 2020-02-05 00:00:00 1 [facility] Smoking Status Start Date Stop Date Source Current every day smoker 2020-02-05 00:00:00 [facility] Medications Ordered Medication Name Filled Medication Name Start Date Stop Date Current Medication? Ordering Clinician Indication Dosage Frequency Signature (SIG) Comments Components Source buprenorphi ne-naloxone (SUBOXONE) 8-2 mg sublingual film 2019-03 19:49: [address] the tongue[address] [facility] esomeprazol e (NEXIUM) 20 mg capsule 2019-03 19:49: 37 Yes 20mg Take 20 mg by mouth daily before a meal. [facility] MULTIVITAMI N ORAL 2019-03 19:49: 37 Yes 1{tbl} Take 1 tablet by mouth daily. [facility] buprenorphi ne-naloxone (SUBOXONE) 8-2 mg sublingual film 2019-03 19:49: [address] under the tongue. [facility] esomeprazol e (NEXIUM) 20 mg capsule 2019-03 19:49: 37 Yes 20mg Take 20 mg by mouth daily before a meal. [facility] MULTIVITAMI N ORAL 2019-03 19:49: 36 Yes 1{tbl} Take 1 tablet by mouth daily. [facility] benzonatate (TESSALON PERLES) 100 mg capsule 2019-03 00:00: 00 Yes [id number] 100mg Take 1 capsule by mouth 3 (three) times daily. [facility] azelastine 137 mcg (0.1 %) nasal spray 2019-03 00:00: 00 Yes [id number] 1{spray } Use 1 [place] in each nostril 2 (two) times daily. Use in each nostril as directed [facility] benzonatate (TESSALON PERLES) 100 mg capsule 2019-03 00:00: 00 Yes [id number] 100mg Take 1 capsule by mouth 3 (three) times daily. [facility] azelastine 137 mcg (0.1 %) nasal spray 2019-03 00:00: 00 Yes [id number] 1{spray } Use 1 [place] in each nostril 2 (two) times daily. Use in each nostril as directed [facility] tamsulosin 0.4 mg 24 hr capsule 08-15 00:00: 00 Yes [id number] .4mg Take 1 capsule by mouth at bedtime. [facility] ketorolac 10 mg tablet 08-15 00:00: 00 Yes [id number] 10mg Take 1 tablet by mouth every 8 (eight) hours. [facility] tamsulosin 0.4 mg 24 hr capsule 08-15 00:00: 00 Yes [id number] .4mg Take 1 capsule by mouth at bedtime. [facility] ketorolac 10 mg tablet 08-15 00:00: 00 Yes [id number] 10mg Take 1 tablet by mouth every 8 (eight) hours. [facility] lisinopril 20 mg tablet 2016-03 00:00: 00 Yes 20mg Take 1 tablet by mouth daily. MUST SEE DR HARVEY BEFORE FILLING AGAIN. THANK YOU!! [facility] lisinopril 20 mg tablet 2016-03 00:00: 00 Yes 20mg Take 1 tablet by mouth daily. MUST SEE DR HARVEY BEFORE FILLING AGAIN. THANK YOU!! [facility] ibuprofen 800 mg tablet 12-12 00:00: 00 Yes TAKE 1 TABLET THREE TIMES A DAY [facility] ibuprofen 800 mg tablet 12-12 00:00: 00 Yes TAKE 1 TABLET THREE TIMES A DAY [facility] Vital Signs Vital Name Observation Time Observation Value Comments S juan m Systolic blood pressure 2020-02-05 19:50:00 113 mm[Hg] [facility] Diastolic blood pressure 2020-02-05 19:50:00 72 mm[Hg] [facility] Heart rate 2020-02-05 19:50:00 71 /min [facility] Body temperature 2020-02-05 19:50:00 37.06 Kendra [facility] Body height 2020-02-05 19:50:00 172.7 cm [facility] Body weight 2020-02-05 19:50:00 99.791 kg [facility] BMI 2020-02-05 19:50:00 33.45 kg/m2 [facility] Oxygen saturation in Arterial blood by Pulse oximetry 2020-02-05 19:50:00 96 /min [place] [facility] Encounters Start Date/Time End Date/Time Encounter Type Admission Type Attending Clinicians Care Facility Care Department Encounter ID Source 2020-02-27 00:00:00 2020-02-27 00:00:00 Refill Ana Baker [facility] [address] [id number] [facility] 2020-02-05 13:41:27 2020-02-05 14:10:59 Urgent Care Provider, [facility] Ana Baker [facility] [id number] [facility] 2020-02-05 13:40:00 2020-02-05 13:40:00 Outpatient R ANA BAKER [facility] [id number] [facility]
[2023-06-06 11:45] LABS: Specific Gravity > 1.030 (1.005-1.030); Sqamous Epithelial <5 /HPF (None Seen); Urine Bacteria <20 /HPF (<20); Urine Bilirubin 1+ (Negative); Urine Blood Negative (Negative); Urine Clarity Clear (Clear); Urine Color Dark-Yellow (Yellow); Urine Culture Reflex Order NOT NEEDED; Urine Glucose 4+ (Over) (Negative); Urine Ketones NEGATIVE (Negative); Urine Microscopic Reflex YN ORDER UMIC; Urine Mucus Slight /HPF (None Seen); Urine Nitrite 1+ (Negative); Urine Protein NEGATIVE (Negative); Urine RBC <5 /HPF (None Seen); Urine Urobilinogen 1+ (Normal); Urine WBC <5 /HPF (<5); Urine Yeast (Budding) Trace /HPF (None Seen)
[2023-06-06 11:48] LABS: Absolute Lymphocytes (CBC) 2.8 K/uL (0.7-4.9); Absolute Monocytes 0.2 K/uL (0.1-1.3); Absolute Neutrophil 2.2 K/uL (1.8-8.0); Basophils % 0.8 % (0-1.3); Eosinophils % 0.6 % (0-4.4); Hematocrit 40.5 % (39.6-49.0); Hemoglobin 13.6 g/dL (13.6-17.9); Lymphocytes % 53.2 % (15.3-44.8); MCH 30.8 pg (27.0-35.0); MCHC 33.7 g/dL (32.0-36.0); MCV 91.5 fL (80-100); MPV 8.8 fL (7.6-11.3); Monocytes % 4.4 % (3.3-12.3); Nucleated Red Blood Cells % 0.2 % (0-0); Platelets 162 thou/uL (152-406); RBC Red Blood Cell Count 4.43 M/uL (4.33-5.43); Red Cell Distribution Width 14.1 % (12.1-15.2)
[2023-06-06 11:59] LABS: Albumin 3.6 g/dL (3.4-5.0); Albumin/Globulin Ratio 1.2 (1.1-1.8); Anion Gap 8.9 mEq/L (5.0-15.0); Bilirubin Total 0.4 mg/dL (0.2-1.0); Potassium 3.9 mEq/L (3.5-5.1); Protein, Total 6.6 g/dL (6.4-8.2)
--- NOTE | 2023-06-06 12:37 | RAD REPORT ---
EXAM DESCRIPTION: CT - Abdomen Pelvis W Contrast - 06/06/2023 12:13 pm CLINICAL HISTORY: R sided abd supriya COMPARISON: Abdomen Pelvis W Contrast dated 04/08/2021; Abdomen Pelvis W Contrast dated 09/28/2016 ; CT ABD PELVIS W CONTRAST dated 05/25/2015; Abdomen Single View dated 08/19/2018 TECHNIQUE: Thin cut axial CT imaging of the abdomen and pelvis was performed following intravenous a dministration of 100 mL Isovue 300. Multiplanar reformats were generated and reviewed. All CT scans are performed using dose optimization technique as appropriate and may include automated exposure control or mA/KV adjustment according to patient size. FINDINGS: No suspicious findings in the lung bases. The liver shows diffuse hepatic parenchymal hypoattenuation suggesting steatosis. Adrenal glands, spl een, and pancreas show no suspicious findings. Gallbladder and biliary tree are also without suspicio us finding. Symmetric renal function is seen with no hydronephrosis or suspicious renal mass. No dilated bowel loops or bowel wall thickening. No free air, free fluid or inflammatory stranding. A ppendix is not visualized and could be surgically removed. No hernia, mass or bulky lymphadenopathy. The urinary bladder is without significant finding. No suspicious bony findings. IMPRESSION: No acute intra-abdominal process. Diffuse hepatic steatosis.
[2023-06-06 12:43] LABS: Differential Total Cells Count 100; Lymphocytes 59 % (15-42); Monocytes 7 % (0-10); Segmented Neutrophils 33 % (40-80)
[2023-06-06 12:44] LABS: Atypical Lymphocytes 1 %; Blood Morphology Comment NOT SEEN (NOT SEEN); Platelet Estimate ADEQ
--- NOTE | 2023-06-06 13:02 | ER ---
Nurse's Notes [facility] Name: Milan Gonzales Age: 42 yrs Sex: Male : 1980 Arrival Date: 06/06/2023 Time: 10:58 Bed 15 Private MD: Diagnosis: UTI/ Urinary tract infection, site not specified Presentation: 06/05 11:12 Chief complaint: Patient states: RLQ abdominal pain, SILVERIO flank pain - pain radiates to ld1 groin X 3 days. Nausea. Coronavirus screen: At this time, the client does not indicate any symptoms associated with coronavirus-19. Ebola Screen: No symptoms or risks identified at this time. Initial Sepsis Screen: Does the patient meet any 2 criteria? No. Patient's initial sepsis screen is negative. Does the patient have a suspected source of infection? No. Patient's initial sepsis screen is negative. Risk Assessment: Do you want to hurt yourself or someone else? Patient reports no desire to harm self or others. Onset of symptoms was June 06, 2023. 11:12 Method Of Arrival: Ambulatory ld1 11:12 Acuity: LIOR 3 ld1 Triage Assessment: 11:13 General: Appears in no apparent distress. uncomfortable, Behavior is calm, cooperative, ld1 appropriate for age. Pain: Complains of pain in low back area, right lower quadrant and pelvis Pain does not radiate. Pain currently is 7 out of 10 on a pain scale. at worst was 10 out of 10 on a pain scale. Quality of pain is described as throbbing, Pain began suddenly, Is continuous. EENT: No signs and/or symptoms were reported regarding the EENT system. Neuro: Level of Consciousness is awake, alert, obeys commands, Oriented to person, place, time, situation. Cardiovascular: Capillary refill < 3 seconds Patient's skin is warm and dry. Respiratory: Airway is patent Respiratory effort is even, unlabored. GI: Abdomen is round non-distended, Reports lower abdominal pain, nausea. : No signs and/or symptoms were reported regarding the genitourinary system. Derm: No signs and/or symptoms reported regarding the dermatologic system. Musculoskeletal: No signs and/or symptoms reported regarding the musculoskeletal system. Historical: - Allergies: 11:13 No Known Allergies; ld1 - Home Meds: 11:13 lisinopril Oral [Active]; ld1 - PMHx: 11:13 Hypertension; ld1 11:16 Kidney stones; ld1 - PSHx: 11:15 Appendectomy; ld1 11:16 lithotripsy; ld1 - Immunization history:: Adult Immunizations up to date. - Social history:: Smoking status: Patient reports the use of cigarette tobacco products, smokes one pack cigarettes per day. Patient/guardian denies using alcohol. Screenin:[address] [facility] ED Fall Risk Assessment (Adult) History of falling in the last 3 months, mb9 including since admission No falls in past 3 months (0 pts) Confusion or Disorientation No (0 pts) Intoxicated or Sedated No (0 pts) Impaired Gait No (0 pts) Mobility Assist Device Used No (0 pt) Altered Elimination No (0 pt) Score/Fall Risk Level 0 - 2 = Low Risk Oriented to surroundings, Maintained a safe environment, Educated pt \T\ family on fall prevention, incl call for assistance when getting out of bed. Abuse screen: Denies threats or abuse. Nutritional screening: No deficits noted. Tuberculosis screening: No symptoms or risk factors identified. Assessment: 11:36 General: Appears in no apparent distress. Behavior is calm, cooperative. Pain: mb9 Complains of pain in right lower quadrant Pain radiates to low back area Pain currently is 4 out of 10 on a pain scale. Quality of pain is described as throbbing, Pain began 2-3 days ago. Is continuous. Neuro: Dominique Agitation-Sedation Scale (RASS): 0 - Alert and Calm Level of Consciousness is awake, alert, obeys commands, Oriented to person, place, time, situation, Appropriate for age. Cardiovascular: Heart tones S1 S2 present Patient's skin is warm and dry. Respiratory: Airway is patent Respiratory effort is even, unlabored, Respiratory pattern is regular, symmetrical, Breath sounds are clear bilaterally. GI: Abdomen is round non-distended, Bowel sounds present X 4 quads. Abd is soft Abdomen is tender to palpation in right lower quadrant Reports nausea. : Urine is clear, Reports urinary frequency. EENT: No signs and/or symptoms were reported regarding the EENT system. Derm: Skin is pink, warm \T\ dry. Musculoskeletal: Range of motion: intact in all extremities. 12:34 Reassessment: No changes from previously documented assessment. Patient and/or family mb9 updated on plan of care and expected duration. Pain level reassessed. Patient is alert, oriented x 3, equal unlabored respirations, skin warm/dry/pink. Vital Signs: 11:12 BP 143 / 92; Pulse 76; Resp 18; Temp 98.3(O); Pulse Ox 98% on R/A; Weight 108.86 kg; ld1 Height 5 ft. 9 in. ; Pain 7/10; 11:38 BP 156 / 85; Pulse 84; Resp 18; Pulse Ox 100% on R/A; mb9 13:10 BP 145 / 85; Pulse 78; Resp 18; Pulse Ox 100% on R/A; mb9 11:12 Body Mass Index 35.44 (108.86 kg, 175.26 cm) ld1 11:12 Pain Scale: Adult ld1 ED Course: 11:01 Patient arrived in ED. mg5 11:02 Pasquale Ramos MD is Attending Physician. ec2 11:13 Triage completed. ld1 11:13 Arm band placed on right wrist. ld1 11:19 Donna Jimenez, YADIEL is Primary Nurse. mb9 11:36 Inserted saline lock: 18 gauge in right forearm, using aseptic technique. Blood mb9 collected. 11:37 Placed in gown. Bed in low position. Call light in reach. Side rails up X 1. Client mb9 placed on continuous cardiac and pulse oximetry monitoring. NIBP monitoring applied. 11:37 Provided Education on: press call light if needing anything. mb9 11:37 No provider procedures requiring assistance completed. mb9 11:38 CBC with Diff Sent. mb9 11:38 CMP Sent. mb9 11:38 Lipase Sent. mb9 11:38 Urinalysis w/ reflexes Sent. mb9 12:14 CT Abd/Pelvis - IV Contrast Only In Process Unspecified. EDMS 13:15 IV discontinued, intact, bleeding controlled, No redness/swelling at site. Pressure mb9 dressing applied. Administered Medications: 11:38 Drug: NS 0.9% IV 1000 ml IV at 1 bolus Per protocol; 1000 mL bolus Route: IV; Rate: 1 mb9 bolus; Site: right forearm; 13:10 Follow up: Response: No adverse reaction; IV Status: Completed infusion mb9 11:38 Drug: Ondansetron IVP 4 mg IVP once; over 2 minutes Route: IVP; Site: right forearm; mb9 13:10 Follow up: Response: No adverse reaction mb9 Medication: 11:37 VIS not applicable for this client. mb9 Outcome: 13:01 Discharge ordered by . ec2 13:15 Discharged to home ambulatory, mb9 13:15 Condition: stable 13:15 Discharge instructions given to patient, Instructed on discharge instructions, follow up and referral plans. Demonstrated understanding of instructions, follow-up care, medications, Prescriptions given X 1, 13:15 Patient left the ED. mb9 Signatures: Dispatcher [employer] EDAle Dalal RN RN ld1 Donna Jimenez RN RN mb9 Oralia Young mg5 Pasquale Ramos MD MD ec2 Corrections: (The following items were deleted from the chart) 11:16 11:13 PSHx: Splenectomy; ld1 ld1
--- NOTE | 2023-06-06 13:02 | EDPHYS ---
Physician Documentation [facility] Name: Milan Gonzales Age: 42 yrs Sex: Male : 1980 Arrival Date: 06/06/2023 Time: 10:58 Bed 15 Private MD: ED Physician Pasquale Ramos HPI: 06/05 11:19 This 42 yrs old Male presents to ER via Ambulatory with complaints of ec2 Abdominal Pain. 11:19 Patient with history of kidney stones, appendectomy arrives today for right lower ec2 quadrant abdominal pain rating to the groin into the back. Intermittent, no specific alleviating or assessment factors. Had taken Advil prior to arrival with improvement in symptoms. Some associated nausea, no vomiting, no changes in stools. Has been taking Azo for symptoms as noted in his urine to now be orange.. Historical: - Allergies: 11:13 No Known Allergies; ld1 - Home Meds: 11:13 lisinopril Oral [Active]; ld1 - PMHx: 11:13 Hypertension; ld1 11:16 Kidney stones; ld1 - PSHx: 11:15 Appendectomy; ld1 11:16 lithotripsy; ld1 - Immunization history:: Adult Immunizations up to date. - Social history:: Smoking status: Patient reports the use of cigarette tobacco products, smokes one pack cigarettes per day. Patient/guardian denies using alcohol. ROS: 11:19 Constitutional: as per hpi ec2 Exam: 11:19 Constitutional: GEN: NAD Head: atraumatic Eyes: EOMI Ears: External ears are ec2 normal. CV: regular rate LUNGS: no respiratory distress ABD: non-distended, soft, nontender, no guarding, not rigid, negative flanks bilaterally. SKIN: no evidence of rashes MSK: no evidence of trauma NEURO: moves all extremities equally Vital Signs: 11:12 BP 143 / 92; Pulse 76; Resp 18; Temp 98.3(O); Pulse Ox 98% on R/A; Weight 108.86 kg; ld1 Height 5 ft. 9 in. ; Pain 7/10; 11:38 BP 156 / 85; Pulse 84; Resp 18; Pulse Ox 100% on R/A; mb9 13:10 BP 145 / 85; Pulse 78; Resp 18; Pulse Ox 100% on R/A; mb9 11:12 Body Mass Index 35.44 (108.86 kg, 175.26 cm) ld1 11:12 Pain Scale: Adult ld1 MDM: 11:18 Patient medically screened. ec2 11:19 Data reviewed: vital signs. ED course: Patient arrives today for right flank pain. ec2 Examination remarkable for well-appearing nontoxic dividual is otherwise in no acute distress with a reassuring abdominal examination. Will obtain lab work, urine studies, CT imaging. Evaluating for gallstones, kidney stones, pyelonephritis.. 13:01 ED course: CBC reassuring, metabolic profile is all appropriate electrolytes, urine ec2 shows nitrates. Lipase within normal ranges. CT abdomen pelvis shows no acute intra-abdominal process. Will treat for UTI, pyelonephritis. Will discharge home with antibiotics. . 06/05 11:19 Order name: CBC with Diff; Complete Time: 13:00 ec2 06/05 11:19 Order name: CMP; Complete Time: 13:00 ec2 06/05 11:19 Order name: Lipase; Complete Time: 13:00 ec2 06/05 11:19 Order name: Urinalysis w/ reflexes; Complete Time: 13:00 ec2 06/05 12:02 Order name: Manual Differential; Complete Time: 13:00 EDMS 06/05 11:19 Order name: CT Abd/Pelvis - IV Contrast Only; Complete Time: 13:00 ec2 06/05 11:19 Order name: IV Saline Lock; Complete Time: 11:38 ec2 06/05 11:19 Order name: Labs collected and sent; Complete Time: 11:38 ec2 Administered Medications: 11:38 Drug: NS 0.9% IV 1000 ml IV at 1 bolus Per protocol; 1000 mL bolus Route: IV; Rate: 1 mb9 bolus; Site: right forearm; 13:10 Follow up: Response: No adverse reaction; IV Status: Completed infusion mb9 11:38 Drug: Ondansetron IVP 4 mg IVP once; over 2 minutes Route: IVP; Site: right forearm; mb9 13:10 Follow up: Response: No adverse reaction mb9 Disposition Summary: 06/06/23 13:01 Discharge Ordered Notes: Location: Home ec2 Condition: Stable ec2 Diagnosis - UTI/ Urinary tract infection, site not specified ec2 Followup: ec2 - With: Private Physician - When: - Reason: Re-evaluation by your physician Discharge Instructions: - Discharge Summary Sheet ec2 - Urinary Tract Infection, Adult ec2 Forms: - Work release form mb9 - Medication Reconciliation Form ec2 - Thank You Letter ec2 - Antibiotic Education ec2 - Prescription Opioid Use ec2 - Patient Portal Instructions ec2 - Leadership Thank You Letter ec2 Prescriptions: - Bactrim DS 800-160 mg Oral Tablet - take 1 tablet ORAL route every 12 hours for 7 days; 14 tablet; Refills: 0, ec2 Product Selection Permitted Signatures: Dispatcher [employer] Ale Cuellar RN RN ld1 Donna Jimenez RN RN mb9 Pasquale Ramos MD MD ec2 Corrections: (The following items were deleted from the chart) 11:16 11:13 PSHx: Splenectomy; ld1 ld1
[2023-06-06 13:24] VITALS: BP 145/85; TEMP 98.3; O2SAT 100
== END ==
LOC: ER 10:58
DX: N39.0 Urinary tract infection, site not specified (principal); Z87.442 Personal history of urinary calculi; I10 Essential (primary) hypertension; F17.210 Nicotine dependence, cigarettes, uncomplicated
CPT/HCPCS: 85025; 81001; 36415; 83690; 80053; 74177; Q9967; J2405; J7030